=== PATIENT | female | born 1980 | race Caucasian/White ===

== ENCOUNTER 2024-10-23 08:28 | Outpatient (CLI) | payer OTHER, SELFPAY ==
--- NOTE | ~2024-10-23 | MMUS_ITS ---
EXAMINATION: MM diagnostic sita BI w robert, US breast BI complete HISTORY: Palpable breast lumps. TECHNIQUE: Additional 3-D tomosynthesis images of the breasts were performed and synthetic 2-D images were generated. CAD analysis was submitted and interpreted. High resolution complete bilateral breas t ultrasound was performed. COMPARISON: None BREAST PARENCHYMAL COMPOSITION: Not dense: There are scattered areas of fibroglandular density. FINDINGS: MAMMOGRAPHIC FINDINGS: There are asymmetries in the upper outer quadrants of both breasts which compress with spot views, co mpatible with superimposed fibroglandular tissue. ULTRASOUND: Complete US of all 4 quadrants of the breast/s and retroareolar region was reviewed. Normal heterogen eous echotexture without focal solid or cystic mass. IMPRESSION: 1. No evidence for malignancy in either breast. 2. Routine yearly screening mammogram and regular clinical breast examination are recommended. BI-RADS Category 1: Negative Reviewed, dictated and finalized at location B. [facility] IMPRESSION: 1. No evidence for malignancy in either breast. 2. Routine yearly screening mammogram and regular clinical breast examination a re recommended. BI-RADS Category 1: Negative
== END 2024-10-23 08:29 | disposition home or self-care (01) ==
LOC: MICIMG 08:29
PROVIDERS: Visit Provider Obstetrics & Gynecology
DX: N63.13 Unspecified lump in the right breast, lower outer quadrant (principal)
CPT/HCPCS: 76641; 77062; 77066; G0279